=== PATIENT | female | born 1950 | race Two or more races ===

== ENCOUNTER 2017-07-28 00:38 | Emergency (ER) | payer OTHER ==
[2017-07-28 01:04] VITALS: BP 150/91; PULSE 77; TEMP 97.8; BMI 24.5
--- NOTE | 2017-07-28 01:27 | PDOC ---
Attending Attestation - Resident Resident Name: Orin Anderson - HPI HPI: 07/31/17 20:36 pt presnents to the ED complaining of nausea and two episodes of vomiting. Denies fever or abdominal pain. Denies chest pain or shortness of breath. history of DM with elevated glucose at home. 07/31/17 20:37 - Physicial Exam PE: 07/31/17 21:12 Agree with resident exam. Patient is well appearing in the ED with non tender abdomen. - Medical Decision Making 07/31/17 21:18 pt presents to the ED complaining of nausea and vomiting that have now resolved. Tolerating PO in the ED. Lab work is within normal limits. Will discharge home with referral to PMD.
--- NOTE | 2017-07-28 01:46 | PDOC ---
History of Present Illness - General Chief Complaint: Nausea Stated Complaint: NAUSEA Time Seen by Provider: 07/28/17 01:26 History Source: Patient, Family - History of Present Illness Initial Comments: 07/28/17 03:45 Rashid is a 67 y.o. female with a PMH of NIIDM and HTN who presents with acute onset of nausea and vomiting. Patient was in her usual state of health today until 6 p.m. when she became acutelny nausea and vomited twice (NBNB). Patient' s last meal was around 2 p.m. and she has been having normal bowel movements. Patient's family at bedside note they measured her BS earlier in the day prior to symptom onset and it was in the 340's. Patient denies any recent illness, fevers/chills, abdominal pain, chest pain or shortness of breath. Past History - Past Medical History Allergies/Adverse Reactions: Allergies Allergy/AdvReac Type Severity Reaction Status Date / Time No Known Allergies Allergy Verified 07/28/17 00:57 Home Medications: Ambulatory Orders Amlodipine Besylate 10 mg PO DAILY 07/28/17 Aspirin [Aspirin EC] 81 mg PO DAILY 07/28/17 Atorvastatin Calcium 20 mg PO DAILY 07/28/17 Furosemide 20 mg PO DAILY 07/28/17 Glipizide Xl [Glucotrol Xl -] 10 mg PO DAILY 07/28/17 Ibuprofen 600 mg PO TID 07/28/17 Loratadine 10 mg PO DAILY 07/28/17 Losartan/Hydrochlorothiazide [Losartan-Hctz 100-25 mg Tab] 1 each PO DAILY 07/28 Multivitamin [One Daily] 1 each PO DAILY 07/28/17 Nateglinide [Starlix (Nf) -] 120 mg PO TID 07/28/17 Ranitidine HCl 150 mg PO BID 07/28/17 Sitagliptin Phos/Metformin HCl [Janumet 50-1,000 mg Tablet] 1 each PO BID Anemia: No Asthma: Yes Cancer: No Cardiac Disorders: No CVA: No COPD: No CHF: No Dementia: No Diabetes: Yes (NIDDM) GI Disorders: Yes (BLOATING) Disorders: No HTN: Yes Hypercholesterolemia: Yes Liver Disease: No Seizures: No Thyroid Disease: No - Surgical History Abdominal Surgery: Yes (RIGHT INGUINAL HERNIA,) Appendectomy: No Cardiac Surgery: No Cholecystectomy: No Lung Surgery: No Neurologic Surgery: No Orthopedic Surgery: No - Suicide/Smoking/Psychosocial Hx Smoking Status: No Smoking History: Never smoked Have you smoked in the past 12 months: No Number of Cigarettes Smoked Daily: 0 Information on smoking cessation initiated: No Hx Alcohol Use: No Drug/Substance Use Hx: No Substance Use Type: None Review of Systems - Review of Systems Constitutional: No: Chills, Fever Respiratory: No: Shortness of Breath Cardiac (ROS): No: Chest Pain ABD/GI: Yes: Nausea, Vomiting. No: Constipated, Diarrhea : No: Burning, Dysuria *Physical Exam - Vital Signs Last Vital Signs Temp Pulse Resp BP Pulse Ox 97.8 F 77 18 150/91 99 07/28/17 00:49 07/28/17 00:49 07/28/17 00:49 07/28/17 00:49 07/28/17 00:49 - Physical Exam General Appearance: Yes: Nourished, Appropriately Dressed HEENT: positive: EOMI, SALVADOR Neck: positive: Trachea midline, Supple. negative: Lymphadenopathy (R), Lymphadenopathy (L) Respiratory/Chest: positive: Lungs Clear Cardiovascular: positive: S1, S2 Gastrointestinal/Abdominal: positive: Normal Bowel Sounds, Soft. negative: Guarding, Rebound, Tenderness, Hernia, Mass Extremity: positive: Normal Capillary Refill, Normal Inspection Integumentary: positive: Normal Color, Dry, Warm Neurologic: positive: Fully Oriented, Alert ED Treatment Course - LABORATORY CBC & Chemistry Diagram: 07/28/17 02:55 07/28/17 02:55 Medical Decision Making - Medical Decision Making 07/28/17 03:45 Patient is 67 y.o. female with a PMH of NIDDM who presents with acute onset of NBNB emesis. Patient reports hyperglycemia today (BS 340's), initial clinical suspicion for HONK, however patient belly soft with normoactive BS. CMP shows BS 188. Likely viral gastroenteritis. PO replacement of hypokalemia (3.1) and patient discharged home with return precuations and instruction to f/u with PCP. *DC/Admit/Observation/Transfer Diagnosis at time of Disposition: Nausea & vomiting - Discharge Dispostion Disposition: HOME Condition at time of disposition: Good Admit: No - Referrals Referrals: Andres Butler MD [Primary Care Provider] - - Patient Instructions Printed Discharge Instructions: DI for Nausea -- Adult, DI for Vomiting -- Adult Additional Instructions: You were evaluated today for nausea and vomiting. All of your labs showed no concerning findings. Please increase fluid intake and follow up with your primary care doctor in the next 3-5 days. Return to the Emergency Department for any new/worsening/concerning symptoms. - Post Discharge Activity
[2017-07-28] MEDS ORDERED: SODIUM CHLORIDE 0.9% 1000 ML INFUS.BAG IV ONE (02:37)
[2017-07-28 03:02] LABS: BASO % 0.5 % (0-2.0); EOS % 0.9 % (0-4.5); HEMATOCRIT 34.7 % (32.4-45.2); LYMPH % 8.9 % (8-40); MCH 22.7 pg (25.7-33.7); MCHC 31.6 g/dl (32.0-36.0); MEAN CELL VOLUME 71.8 fl (80-96); MEAN PLT VOLUME 8.6 fl (7.5-11.1); MONO % 7.1 % (3.8-10.2); NEUT % 82.6 % (42.8-82.8); PLATELET COUNT 244 K/MM3 (134-434); RBC 4.83 M/mm3 (3.60-5.2); RDW 15.5 % (11.6-15.6)
[2017-07-28 03:03] LABS: URINE APPEARANCE CLEAR; URINE BILIRUBIN NEGATIVE (NEGATIVE); URINE BLOOD NEGATIVE (NEGATIVE); URINE COLOR STRAW; URINE GLUCOSE (UA) NEGATIVE (NEGATIVE); URINE KETONE NEGATIVE (NEGATIVE); URINE LEUK ESTERASE TRACE (NEGATIVE); URINE NITRITE NEGATIVE (NEGATIVE); URINE PROTEIN NEGATIVE (NEGATIVE); URINE UROBILINOGEN NEGATIVE mg/dL (0.2-1.0)
[2017-07-28 03:29] LABS: EPI CELLS RARE /HPF (FEW); URINE HYALINE CAST 2 /lpf; URINE MUCUS RARE
[2017-07-28 03:31] LABS: ALBUMIN 4.2 g/dl (3.4-5.0); ALK PHOS 92 U/L (45-117); ANION GAP 11 (8-16); BILIRUBIN,TOTAL 0.3 mg/dL (0.2-1.0); BLOOD UREA NITROGEN 11 mg/dL (7-18); CALCIUM 8.6 mg/dL (8.5-10.1); CHLORIDE 103 mmol/L (98-107); CO2 27 mmol/L (21-32); CREATININE 0.7 mg/dL (0.55-1.02); GLUCOSE,RANDOM 188 mg/dL (74-106); POTASSIUM 3.1 mmol/L (3.5-5.1); SGOT/AST 15 U/L (15-37); SGPT/ALT 23 U/L (12-78); SODIUM 141 mmol/L (136-145); TOT PROT 7.6 g/dl (6.4-8.2)
[2017-07-28] MEDS ORDERED: POTASSIUM CHLORIDE ORAL LIQUID 20 MEQ/15 ML PO ONE (03:42)
[2017-07-28] MEDS ORDERED: POTASSIUM CHLORIDE ORAL LIQUID 20 MEQ/15 ML ONE (03:49)
--- NOTE | 2017-07-28 09:07 | EKG ---
Test Reason : Blood Pressure : / mmHG Vent. Rate : 068 BPM Atrial Rate : 068 BPM P-R Int : 170 ms QRS Dur : 106 ms QT Int : 396 ms P-R-T Axes : 062 -39 -39 degrees QTc Int : 421 ms NORMAL SINUS RHYTHM LEFT AXIS DEVIATION ABNORMAL ECG WHEN COMPARED WITH ECG OF 30-MAR-2009 17:11, NO SIGNIFICANT CHANGE WAS FOUND Confirmed by Desmond Zazueta ([id number]) on 07/28/2017 9:07:23 AM Referred By: Confirmed By:Desmond Zazueta
== END 2017-07-28 04:43 | disposition home or self-care (01) ==
LOC: JER 00:38
DX: R11.2 Nausea with vomiting, unspecified (principal); E11.9 Type 2 diabetes mellitus without complications; Z79.84 Long term (current) use of oral hypoglycemic drugs; I10 Essential (primary) hypertension; E78.00 Pure hypercholesterolemia, unspecified; Z79.82 Long term (current) use of aspirin
CPT/HCPCS: 36415; 80053; 81003; 81015; 82962; 85025; 93005; 93010; 99283-25

== ENCOUNTER 2019-03-26 15:20 | Emergency (ER) | payer OTHER ==
[2019-03-26 15:52] VITALS: TEMP 98; BMI 27.8
--- NOTE | 2019-03-26 17:29 | PDOC ---
History of Present Illness - General Chief Complaint: Eye Problem Stated Complaint: RT EYE/NECK PAIN Time Seen by Provider: 03/26/19 17:04 History Source: Patient Exam Limitations: No Limitations - History of Present Illness Initial Comments: 03/26/19 17:22 HISTORY OF PRESENT ILLNESS: 68yoF here for evaluation of right eye floaters x2 days. Patient reports atraumatic black spots in her right eye. She states the floaters have been unchanging since onset 2 days ago. She denies blurred vision. Patient now reports right sided headache radiating to right neck. She denies f/c, n/v, CO or SOB. No recent travel or sick contacts. PAST MEDICAL HISTORY: HTN, Asthma, HLD, NIDDM SURGICAL HISTORY: Denies ALLERGIES: No known drug allergies REVIEW OF SYSTEMS General/Constitutional: Denies fever or chills. Denies weakness, weight change. HEENT: see HPI Cardiovascular: Denies chest pain or shortness of breath. Respiratory: Denies cough, wheezing, or hemoptysis. Gastrointestinal: Denies nausea, vomiting, diarrhea or constipation. Denies rectal bleeding. Genitourinary: Denies dysuria, frequency, or change in urination. Musculoskeletal: Denies joint or muscle swelling or pain. Denies neck or back pain. Skin and breasts: Denies rash or easy bruising. Neurologic: see HPI Psychiatric: Denies depression or anxiety. Endocrine: Denies increased thirst. Denies abnormal weight change. Hematologic/Lymphatic: Denies anemia, easy bleeding, or history of blood clots. Allergic/Immunologic: Denies hives or skin allergy. Denies latex allergy. PHYSICAL EXAM General Appearance: Well-appearing, appropriately dressed. No apparent distress , no intoxication. HEENT: EOMI, PERRLA, normal ENT inspection, normal voice, TMs normal, pharynx normal. No conjunctival pallor. No photophobia, scleral icterus. Normal confrontation testing. EYE EXAMINATION: Visual acuity: 20/20 in the left eye, 20/20 in the right eye, near, uncorrected The lid and lashes are normal. Extraocular movements are intact. The conjunctiva is clear without erythema, injection, or discharge The pupils are equal, round and reactive to light. Red reflex normal to left eye. Unable to visulaize left optic disc. Neck: Supple. Trachea midline. No tenderness, rigidity, carotid bruit, stridor , lymphadenopathy, or thyromegaly. Respiratory/Chest: Lungs CTAB. No shortness of breath, chest tenderness, respiratory distress, accessory muscle use. No crackles, rales, rhonchi, stridor , wheezing, dullness Cardiovascular: RRR. S1, S2. No JVD, murmur, bradycardia, tachycardia. Vascular Pulses: Dorsalis-Pedis (R): 2+, Dorsalis-Pedis (L): 2+ Gastrointestinal/Abdominal: Normal bowel sounds. Abdomen soft, non-distended. No tenderness or rebound tenderness. No organomegaly, pulsatile mass, guarding, hernia, hepatomegaly, splenomegaly. Lymphatic: No adenopathy, tenderness. Musculoskeletal/Extremities: Normal inspection. FROM of all extremities, normal capillary refill. Pelvis Stable. No CVA tenderness. No tenderness to extremities, pedal edema, swelling, erythema or deformity. Integumentary: Appropriate color, dry, warm. No cyanosis, erythema, jaundice or rash Neurologic: warehouse helper II-XII intact. Fully oriented, alert. Appropriate mood/affect. Motor strength 5/5. No appreciable EOM palsy, facial droop or sensory deficit. Past History - Past Medical History Allergies/Adverse Reactions: Allergies Allergy/AdvReac Type Severity Reaction Status Date / Time No Known Allergies Allergy Verified 03/26/19 15:45 Home Medications: Ambulatory Orders Amlodipine Besylate 10 mg PO DAILY 07/28/17 Aspirin [Aspirin EC] 81 mg PO DAILY 07/28/17 Atorvastatin Calcium 20 mg PO DAILY 07/28/17 Furosemide 20 mg PO DAILY 07/28/17 Glipizide Xl [Glucotrol Xl -] 10 mg PO DAILY 07/28/17 Ibuprofen 600 mg PO TID 07/28/17 Loratadine 10 mg PO DAILY 07/28/17 Losartan/Hydrochlorothiazide [Losartan-Hctz 100-25 mg Tab] 1 each PO DAILY 07/28 Multivitamin [One Daily] 1 each PO DAILY 07/28/17 Nateglinide [Starlix (Nf) -] 120 mg PO TID 07/28/17 Ranitidine HCl 150 mg PO BID 07/28/17 Sitagliptin Phos/Metformin HCl [Janumet 50-1,000 mg Tablet] 1 each PO BID Anemia: No Asthma: Yes Cancer: No Cardiac Disorders: No CVA: No COPD: No CHF: No DVT: No Dementia: No Diabetes: Yes (NIDDM) GI Disorders: Yes (BLOATING) Disorders: No HTN: Yes Hypercholesterolemia: Yes Liver Disease: No Seizures: No Thyroid Disease: No - Surgical History Abdominal Surgery: Yes (RIGHT INGUINAL HERNIA,) Appendectomy: No Cardiac Surgery: No Cholecystectomy: No Lung Surgery: No Neurologic Surgery: No Orthopedic Surgery: No - Immunization History Immunization Up to Date: Yes - Psycho Social/Smoking Cessation Hx Smoking Status: No Smoking History: Never smoked Have you smoked in the past 12 months: No Number of Cigarettes Smoked Daily: 0 Hx Alcohol Use: No Drug/Substance Use Hx: No Substance Use Type: None *Physical Exam - Vital Signs Last Vital Signs Temp Pulse Resp BP Pulse Ox 98 F 76 16 154/78 99 03/26/19 15:35 03/26/19 15:35 03/26/19 15:35 03/26/19 15:35 03/26/19 15:35 ED Treatment Course - RADIOLOGY Radiology Studies Ordered: Category Date Time Status HEAD CT WITHOUT CONTRAST [CT] Stat CT Scan 03/26/19 17:16 Ordered Medical Decision Making - Medical Decision Making 03/26/19 17:29 A/P: 68yo F with right eye floaters x2 days DDx: retinal detachment, CVA, neoplasm CTH reassess 03/26/19 18:00 POCUS performed by EM resident Anthony with MD Sandoval present. No retinal detachment or hematomas present. CTH pending 03/26/19 20:05 CTH as read by imaging receptionist scheduler: Orbital structures are intact. No acute intracranial findings. I will discharge home to f/u with ophthalmology as outpatient. Strict return precautions provided. Discharge - Discharge Information Problems reviewed: Yes Clinical Impression/Diagnosis: Floaters in visual field Qualifiers: Laterality: right Qualified Code(s): H43.391 - Other vitreous opacities, right eye Condition: Stable Disposition: HOME - Admission No - Follow up/Referral Referrals: Andres Butler MD [Primary Care Provider] - Fay Chin MD [Staff Physician] - - Patient Discharge Instructions Additional Instructions: Your head CT today was normal. You must follow up with ophthalmology on Thursday. Call the number provided for appointment. Return to the emergency department immediately for new or worsening symptoms. Tu CT de la jose hoy era normal. Debe realizar un seguimiento con oftalmologa el lunamarilys. Llame al nmero provisto para la floyd. Regrese al departamento de emergencias de inmediato para detectar sntomas nuevos o que empeoren. - Post Discharge Activity
--- NOTE | 2019-03-26 18:05 | PDOC ---
*Physical Exam - Vital Signs Last Vital Signs Temp Pulse Resp BP Pulse Ox 98 F 76 16 154/78 99 03/26/19 15:35 03/26/19 15:35 03/26/19 15:35 03/26/19 15:35 03/26/19 15:35 Discharge - Discharge Information Problems reviewed: Yes Clinical Impression/Diagnosis: Floaters in visual field Qualifiers: Laterality: right Qualified Code(s): H43.391 - Other vitreous opacities, right eye Condition: Stable - Admission No - Follow up/Referral Referrals: Andres Butler MD [Primary Care Provider] - - Patient Discharge Instructions - Post Discharge Activity Procedures - Bedside Ultrasound Bedside Ultrasound: Ocular Other: Retina Remarks: Bedside POCUS eye exam: Impression: There is no evidence of retinal detachment. The optic nerve measures 0.3 mm in diameter. This does not suggest the patient has evidence of intracranial HTN
--- NOTE | 2019-03-26 18:19 | PDOC ---
*Physical Exam - Vital Signs Last Vital Signs Temp Pulse Resp BP Pulse Ox 98 F 76 16 154/78 99 03/26/19 15:35 03/26/19 15:35 03/26/19 15:35 03/26/19 15:35 03/26/19 15:35 Medical Decision Making - Medical Decision Making 03/26/19 18:19 Ms Garcia presents to the ER with a complaint of 3 days of right eye floaters No eye trauma No eye pain No blurry vision No photophobia No contacts Pt no has right sided headache for which she has taken motrin NO prior episodes like this EOMI PERRLA, no tear drop pupil Globes non firm No clouding of the cornea No conjunctival injection Pt seen by Midlevel Provider under my direct supervision Pt interviewed and examined Ancillary studies pending Pt will need PROMPT follow up with Ophtho (within 1 day) I agree with plan as outlined by Midlevel Provider 03/26/19 18:55 Discharge - Discharge Information Problems reviewed: Yes Clinical Impression/Diagnosis: Floaters in visual field Qualifiers: Laterality: right Qualified Code(s): H43.391 - Other vitreous opacities, right eye Condition: Stable Disposition: HOME - Admission No - Follow up/Referral Referrals: Fay Chin MD [Staff Physician] - Andres Butler MD [Primary Care Provider] - - Patient Discharge Instructions Additional Instructions: Your head CT today was normal. You must follow up with ophthalmology on Thursday. Call the number provided for appointment. Return to the emergency department immediately for new or worsening symptoms. Tu CT de la jose hoy era normal. Debe realizar un seguimiento con oftalmologa el . Llame al nmero provisto para la floyd. Regrese al departamento de emergencias de inmediato para detectar sntomas nuevos o que empeoren. - Post Discharge Activity
[2019-03-26 19:31] VITALS: BP 146/81; PULSE 69
== END 2019-03-26 20:19 | disposition home or self-care (01) ==
LOC: JER 15:20
PROC: B84 Imaging, Eye, Ultrasonography (ICD-10-PCS; principal; 2019-03-26)
DX: H43.391 Other vitreous opacities, right eye (principal); I10 Essential (primary) hypertension; E11.9 Type 2 diabetes mellitus without complications; Z79.84 Long term (current) use of oral hypoglycemic drugs; E78.00 Pure hypercholesterolemia, unspecified; J45.909 Unspecified asthma, uncomplicated; Z79.82 Long term (current) use of aspirin
CPT/HCPCS: 70450-TC; 76513; 99281-25

== ENCOUNTER 2019-08-16 12:58 | Emergency (ER) | payer OTHER ==
[2019-08-16 13:02] VITALS: BP 135/71; PULSE 72; TEMP 97.9; BMI 27.4
--- NOTE | 2019-08-16 14:03 | PDOC ---
History of Present Illness - General Chief Complaint: Cold Symptoms Stated Complaint: SHOULDER PAIN Time Seen by Provider: 08/16/19 13:02 History Source: Patient, Family Exam Limitations: No Limitations - History of Present Illness Initial Comments: 08/16/19 13:53 Patient is here with complaints of progressive worsening of right shoulder pain. Has had multiple visits to her PMD and treatments for same. States suffered from what sounds to be a tendinitis of her left shoulder with some injections and physical therapy a few years ago. States onset of the pain in her right shoulder started approximately 3 months ago and is progressively worsened. Received an x-ray here last week and has an appointment to see her PMD on Thursday. States pain was worse so was hopeful for some additional pain medication until her appointment. Denies fever, denies any numbness or tingling to hands, no recent trauma. Is this a multiple visit Asthma Patient?: No Timing/Duration: unsure Associated Symptoms: reports: denies symptoms Past History - Travel Traveled outside of the country in the last 30 days: No Close contact w/someone who was outside of country & ill: No - Past Medical History Allergies/Adverse Reactions: Allergies Allergy/AdvReac Type Severity Reaction Status Date / Time No Known Allergies Allergy Verified 08/16/19 13:02 Home Medications: Ambulatory Orders Amlodipine Besylate 10 mg PO DAILY 07/28/17 Aspirin [Aspirin EC] 81 mg PO DAILY 07/28/17 Atorvastatin Calcium 20 mg PO DAILY 07/28/17 Furosemide 20 mg PO DAILY 07/28/17 Glipizide Xl [Glucotrol Xl -] 10 mg PO DAILY 07/28/17 Ibuprofen 600 mg PO TID 07/28/17 Loratadine 10 mg PO DAILY 07/28/17 Losartan/Hydrochlorothiazide [Losartan-Hctz 100-25 mg Tab] 1 each PO DAILY 07/28 Multivitamin [One Daily] 1 each PO DAILY 07/28/17 Nateglinide [Starlix (Nf) -] 120 mg PO TID 07/28/17 Ranitidine HCl 150 mg PO BID 07/28/17 Sitagliptin Phos/Metformin HCl [Janumet 50-1,000 mg Tablet] 1 each PO BID Acetaminophen W/ Codeine #3 [Tylenol # 3] 1 combo PO Q4H PRN #10 tablet MDD 6 Anemia: No Asthma: Yes Cancer: No Cardiac Disorders: No CVA: No COPD: No CHF: No DVT: No Dementia: No Diabetes: Yes (NIDDM) GI Disorders: Yes (BLOATING) Disorders: No HTN: Yes Hypercholesterolemia: Yes Liver Disease: No Seizures: No Thyroid Disease: No - Surgical History Abdominal Surgery: Yes (RIGHT INGUINAL HERNIA,) Appendectomy: No Cardiac Surgery: No Cholecystectomy: No Lung Surgery: No Neurologic Surgery: No Orthopedic Surgery: No - Immunization History Immunization Up to Date: Yes - Psycho Social/Smoking Cessation Hx Smoking Status: No Smoking History: Never smoked Have you smoked in the past 12 months: No Number of Cigarettes Smoked Daily: 0 Hx Alcohol Use: No Drug/Substance Use Hx: No Substance Use Type: None Review of Systems - Review of Systems Able to Perform ROS?: Yes Is the patient limited [place]an proficient: Yes Constitutional: Yes: See HPI, Malaise. No: Symptoms Reported, Chills, Fever HEENTM: No: Symptoms Reported Respiratory: Yes: See HPI. No: Symptoms reported, Cough ABD/GI: Yes: See HPI. No: Symptoms Reported Musculoskeletal: Yes: Symptoms Reported, See HPI, Joint Pain (Right shoulder,) All Other Systems: Reviewed and Negative *Physical Exam - Vital Signs Last Vital Signs Temp Pulse Resp BP Pulse Ox 97.9 F 72 18 135/71 98 08/16/19 13:00 08/16/19 13:00 08/16/19 13:00 08/16/19 13:00 08/16/19 13:00 - Physical Exam General Appearance: Yes: Nourished, Appropriately Dressed, Mild Distress HEENT: positive: SALVADOR, Normal ENT Inspection, TMs Normal, Pharynx Normal Neck: positive: Supple. negative: Tender Musculoskeletal: positive: Normal Inspection, Decreased Range of Motion ( However able to completely abduct arm past 90 degrees, forward flex past 90 degrees, has strong pushes and pulls with mild reproduced tenderness at shoulder capsule. No crepitus or step-offs but all movement reproduces pain. Neurovascular intact to hand). negative: Vertebral Tenderness Extremity: positive: Normal Inspection. 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 Will treat with a few days of Tylenol 3 for a stronger pain relief and encourage patient to follow-up with PMD with appointment for possible physical therapy or other treatment modalities. Discharge - Discharge Information Problems reviewed: Yes Clinical Impression/Diagnosis: Chronic pain in right shoulder Condition: Stable Disposition: HOME - Admission No - Additional Discharge Information Prescriptions: Acetaminophen W/ Codeine #3 [Tylenol # 3] 1 combo PO Q4H PRN #10 tablet MDD 6 PRN Reason: Pain - Follow up/Referral Referrals: Andres Butler MD [Primary Care Provider] - - Patient Discharge Instructions Patient Printed Discharge Instructions: DI for Shoulder Pain Additional Instructions: Rest, i, avoid strenuous activity and exercise until cleared or pain resolves Ice area for swelling and pain May continue using Tylenol for mild pain May use Tylenol #3- 1 tablet for severe pain, understanding do not double Tylenol dosing and will make mildly dizzy and sleepy. Follow-up with PMD on Thursday as scheduled - Post Discharge Activity
== END 2019-08-16 14:10 | disposition home or self-care (01) ==
LOC: JERFT 12:58
DX: M25.511 Pain in right shoulder (principal); G89.29 Other chronic pain; I10 Essential (primary) hypertension; E11.9 Type 2 diabetes mellitus without complications; Z79.84 Long term (current) use of oral hypoglycemic drugs; E78.00 Pure hypercholesterolemia, unspecified; J45.909 Unspecified asthma, uncomplicated
CPT/HCPCS: 99283-25